=== PATIENT | male | born 1950 | race Caucasian/White ===

== ENCOUNTER → 2018-01-09 | Outpatient (CLI) | payer MEDICARE ==
[2016-03-03 16:38] VITALS: BP 136/74
[~2018-01-09] MED LIST: IBUP-1060 PO; LISI-334 PO; OMEP20TA63 PO; PRAV20TA2 PO
[2018-01-09 14:32] LABS: BASO % 1 % (0-3); EOS # 0.2 x10^3/uL (0.0-0.7); EOS % 4 % (0-3); HEMATOCRIT 43.4 % (39.0-53.0); HEMOGLOBIN 15.1 g/dL (13.0-17.5); LYMPH # 1.4 x10^3/uL (1.0-4.8); LYMPH % 25 % (24-48); MEAN CORPUSCULAR HEMOGLOBIN 33 pg (25-35); MEAN CORPUSCULAR HGB CONC 35 g/dL (31-37); MEAN CORPUSCULAR VOLUME 94 fL (79-100); MONO # 0.5 x10^3/uL (0.0-1.1); MONO % 9 % (0-9); NEUT # 3.4 x10^3uL (1.8-7.7); NEUT % 62 % (31-73); PLATELET COUNT 146 x10^3/uL (140-400); RED BLOOD COUNT 4.61 x10^6/uL (4.30-5.70); RED CELL DISTRIBUTION WIDTH 13.4 % (11.5-14.5); WHITE BLOOD COUNT 5.5 x10^3/uL (4.0-11.0)
--- NOTE | 2018-01-09 14:41 | EKG ---
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
[2018-01-09 15:00] LABS: ALBUMIN 3.7 g/dL (3.4-5.0); ALBUMIN/GLOBULIN RATIO 1.1 (1.0-1.7); CALCIUM 9.1 mg/dL (8.5-10.1); CREATININE 1.2 mg/dL (0.7-1.3); GFR 60.4; POTASSIUM 4.4 mmol/L (3.5-5.1); TOTAL BILIRUBIN 0.5 mg/dL (0.2-1.0); TOTAL PROTEIN 7.2 g/dL (6.4-8.2)
[2018-01-10 01:12] LABS: HEMOGLOBIN A1C 5.9 % (4.8-5.6)
== END | disposition home or self-care (01) ==
LOC: SURGPAT 13:40
PROVIDERS: ATTEND Neurological Surgery
DX: Z01.818 Encounter for other preprocedural examination (principal); M48.062 Spinal stenosis, lumbar region with neurogenic claudication; I10 Essential (primary) hypertension; E78.00 Pure hypercholesterolemia, unspecified; Z87.891 Personal history of nicotine dependence
CPT/HCPCS: 36415; 80053; 83036; 85025; 87641; 93005

== ENCOUNTER → 2018-01-23 | Day surgery (SDC) | payer MEDICARE ==
[~2018-01-23] VITALS: Ht 156.2 cm; Wt 112.0 kg
[~2018-01-23] MED LIST changes: +BACITRACIN 50,000 UNIT in IV NORMAL SALINE 1000ML BAG 1,000 ML IRR ONE; +BUPIVAC MPF-EPI 0.5%-1:200000 30 ML VIAL. INJ ONE; +DESFLURANE > 120 MINUTES IH ONE; +DEXAMETHASONE SOD PHOS 20 MG/5 ML VIAL. ONE; +DOCU-109 PO; +GELATIN SPONGE SIZE 100. ONE; +GLYCOPYRROLATE 1 MG/5 ML VIAL. ONE; +HYDR-2762 PO; +HYDROcodone/APAP 7.5/325MG 1 TAB TABLET PO ONE; +HYDROmorphone 2 MG/ML VIAL IV PRN; +IV RINGERS,LACTATED 1000ML 1,000 ML IV SCH; +KETOROLAC 60 MG/2 ML INJ FOR OR. ONE; +LIDOCAINE 1% PF 2 ML VIAL. ID PRN; +LIDOCAINE 2% PF Vial for OR 5 ML VIAL. ONE; +METH-38 PO; +MIDAZOLAM HCL/PF 2 MG/2 ML VIAL. ONE; +MORPHINE SULFATE 2 MG/ML VIAL. IV PRN; +NEOSTIGMINE METHYLSULFATE 5 MG/5 ML SYRINGE. ONE; +ONDANSETRON PF 4 MG/2 ML VIAL. IV PRN; +ONDANSETRON PF 4 MG/2 ML VIAL. ONE; +PHENYLEPHRINE 10 MG/ML VIAL. ONE; +PROCHLORPERAZINE 10 MG/2 ML VIAL. IV PRN; +PROPOFOL 100 ML IV ONE; +PROPOFOL 20 ML IV ONE; +REMIFENTANIL 2 MG VIAL. IV ONE; +ROCURONIUM 50 MG/5 ML VIAL. ONE; +THROMBIN TOPICAL 20,000 UNIT SPRAY.SYRN KIT TP ONE; +ePHEDrine PF IN SALINE 50 MG/5 ML DISP.SYRIN IV ONE; +fentaNYL PF VIAL 100 MCG/2 ML VIAL IV PRN; +fentaNYL PF VIAL 100 MCG/2 ML VIAL ONE
--- NOTE | 2018-01-23 11:33 | DISCH ---
DISCHARGE INSTRUCTIONS Condition on Discharge Condition on Discharge: Stable Activity After Discharge Activity Instructions for Disc: Activity as tolerated, Avoid exertion Other activity instructions: no driving for a week Bathing Instructions: Shower-keep dressing dry Lifting Instructions after Dis: No heavy lifting, No pulling or pushing, Do not lift >10 pounds Diet after Discharge Additional Diet Restrictions: resume home diet Wound Incision Care Wound/Incision Care: Ice to area for comfort Other wound/incision instructi: may remove dressing in 48 hrs if dry then may shower, no soaking Contacting the after DC Call your doctor for: Concerns you may have Follow-Up Follow up with: Dr. Garcia's nurse in 2 weeks [phone] JAZMINE GARCIA MD Jan 23, 2018 11:33
[2018-01-23 12:53] VITALS: BP 129/73
--- NOTE | 2018-01-26 15:09 | PATHOLOGY ---
[facility] Accession Number: [id number] . 01 Material submitted: . LUMBAR DECOMPRESSION AND DISC . 01 Clinician provided ICD-10: M48.062 . 01 Clinical history: . Lumbar stenosis and neurogenic claudication . 02 Diagnosis: Segments of fibrocartilaginous, adipose, and skeletal muscle tissue and bone, lumbar decompression and disc: - Degenerative changes of fibrocartilaginous tissue. . (JPM:sr. consultant; 01/26/2018) MBR/01/26/2018 . 02 Comment: There is no evidence of an acute inflammatory process or malignancy. . (JPM:sr. consultant; 01/26/2018) . 02 Electronically signed: . Abiodun Elam MD, Pathologist NPI- [id number] . 01 Gross description: . Received in formalin labeled "Bret Mcwilliams, lumbar decompression and disc," are several pieces of glistening, fibrous tissue measuring 4.4 x 3.1 x 1.2 cm in aggregate dimensions, containing small fragments of possible bone. The tissue submitted representatively in cassette A1, following decalcification (TSD; 01/23/2018) TOB/TOB . 02 Pathologist provided ICD-10: M51.36 . 02 CPT . 094492, 405649 Specimen Comment: A courtesy copy of this report has been sent to Specimen Comment: [phone], . Specimen Comment: Report sent to and Specimen Comment: A duplicate report has been generated due to demographic updates. Performed at: [address], [place], [place] [id number] MD Glynn Barrera MD Phone: [phone] Performed at: 02 [facility] [address] [place], [place] [id number] MD Abiodun Elam MD Phone: [phone]
--- NOTE | 2018-01-26 16:25 | HP ---
ADMIT DATE: 01/23/2018 Preoperative History and Physical Onesimo Arnett dictating for Dr. Julián Garcia. DATE OF SURGERY: 01/23/2018 The patient is a 67-year-old who in 2001 underwent surgery for L4-L5 and 6 months later underwent surgery a second time in that location. He did well until about 3 months ago when he developed right-sided lower back pain and right posterior thigh and leg pain. He says he was working in the garden and developed this problem. He relates his pain as a 6/10. Driving or trying to stand or sitting markedly increases his pain. He has been taking ibuprofen and lying down, which has not helped him. There is no pain in the anterior thigh. There is no pain in the left leg. He does not notice weakness or numbness. The principal problem is marked pain, especially when he stands and walks. PAST MEDICAL HISTORY: Chest pain, hypertension. PAST SURGICAL HISTORY: Lumbar microdecompression in 2001, navel hernia in 2006, broken left ulna in 1967. FAMILY HISTORY: Spine problems. 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 . Exercises daily. Smokes 1 pack per day and has for 45 years. Drinks coffee daily. ALLERGIES: No known drug allergies. CURRENT MEDICATIONS: Lisinopril, pravastatin, ibuprofen. REVIEW OF SYSTEMS: A 12-point review of systems was obtained and is noncontributory except for that mentioned above. NEUROSURGERY EXAMINATION: GENERAL APPEARANCE: Alert, pleasant, no acute distress. HEAD: Normocephalic and atraumatic. SKIN: Warm and dry. MUSCULOSKELETAL: Lumbar paraspinal muscle bulk is normal, restricted range of motion of lumbar spine, [id number] tenderness of lower lumbar spine to palpation, normal range of motion of the lower extremities bilaterally. EXTREMITIES: No clubbing, cyanosis or edema. NEUROLOGIC: Alert and oriented times 3, normal recent and remote memory, strength 5/5 in bilateral lower extremities, sensory was intact to light touch in bilateral lower extremities, reflexes were trace and symmetric in lower extremities bilaterally, positive straight leg raising on the right, negative straight leg raising on the left, antalgic gait favoring his right leg. IMAGING: Reviewed. I reviewed a lumbar MRI scan. On that study, at L5-S1, there is broad-based disk bulging and hypertrophic facet, which impinged on the S1 nerve root, primarily in the right side. At L4-L5, there is hypertrophy of the facet, which is associated with significant lateral recess narrowing on the right. At L3-L4, there is a right-sided disk bulging. ASSESSMENT: 1. Other spondylosis with radiculopathy, lumbar region. 2. Other spondylosis with radiculopathy, lumbosacral region. 3. Spinal stenosis, lumbosacral region with neurogenic claudication. PLAN: Based on his symptoms, I feel the problems at L4-L5 and L5-S1 are most likely responsible for his pain. I recommended a 2-level lumbar micro-decompressive operation. I spoke about the surgery and the risks. He understands. He would like to go ahead. We will make those arrangements. JULIÁN GARCIA MD DR: GEORGE/ryan JOB#: [id number] / [id number]
--- NOTE | 2018-01-30 18:07 | OP ---
DATE OF SURGERY: 01/23/2018 PREOPERATIVE DIAGNOSES: Lateral recess stenosis L4-L5 and L5-S1, right, with right lumbar radiculopathy. POSTOPERATIVE DIAGNOSES: Lateral recess stenosis L4-L5, lateral recess stenosis and herniated disc, L5-S1 right with right lumbar radiculopathy. OPERATION PERFORMED: Hemilaminotomy with microdecompression of dura and nerve root L4-L5. Hemilaminotomy and microdiscectomy L5-S1, right. The operation was done with EMG monitoring, fluoroscopy and microscopic dissection. SURGEON: Julián Garcia M.D. OUTSIDE RIGGER: Lauren Tobin APRN OPERATIVE INDICATIONS: The patient is a very pleasant 67-year-old man who developed intractable back and right leg pain which failed conservative measures and had the above-mentioned findings on imaging studies. He failed to improve with conservative measures, and I recommended lumbar microsurgery. He understood the surgery and the risks. He even understood the technique and wished to go ahead. DESCRIPTION OF PROCEDURE: Following general endotracheal anesthesia, the patient was positioned prone on the Vinny frame. His lumbar region was prepped and draped in standard fashion. ZANDER hose and AV impulse boots were applied for DVT prophylaxis. The microscope was draped. Fluoroscopy was draped and brought in the field. Monitoring was established. Ancef 2 grams was given less than 1 hour prior to initiation of surgery. Using fluoroscopic guidance, a midline incision was made from L4 through S1. I dissected down skin and subcutaneous tissue, reflected the paraspinal muscles and placed a Gower microdisk retractor. I directed my attention first to L4-L5. I drilled down and performed a hemilaminotomy with a high speed air drill using the microscope and microscopic technique. I trimmed the thickened ligamentum flavum and peeled this away from the dura. The ligament was scarred at the dura, presumably from the patient's previous 2 lumbar surgeries done in the past. I trimmed away the ligament and worked laterally to the medial edge of the foramen and performed a foraminotomy, both the high speed air drill and the 2.5 and 2 mm Kerrisons. I worked superiorly and trimmed the ligament along the lateral edge of the dura and fully decompressed the region. I gently retracted the root medially. There were a number of epidural veins, which I coagulated and then following this, I explored carefully and felt that I had an excellent decompression. There was very slight disc bulging, but the disc was firm and no discectomy was warranted. I then moved down to L5-S1 in a similar fashion, drilled a hemilaminotomy, trimmed away thickened ligamentum flavum, performed a partial foraminotomy. I gently retracted the root medially at this level, again through the microscope with microscopic technique, and at this level, the disc was bulging, and I incised the ligament annulus. There was subligamentous disc, which I peeled back and removed and then entering the disc space, I performed discectomy with pituitary rongeurs. As I worked, this region became very well decompressed and the disc bulging resolved. I irrigated copiously and then explored and assured myself there were no retained fragments, that the roots were very free. Hemostasis was excellent. I did use a bipolar judiciously and also small amounts of bone wax where necessary for any bone bleeding. I removed the retractor, obtained hemostasis in the muscle. I irrigated copiously, and I closed the wound in layers with absorbable suture, and skin was closed with 4-0 subcuticular stitch. The operation went very well, and the patient was taken to the recovery room in excellent condition. I was quite pleased with the surgery. JULIÁN GARCIA MD DR: GEORGE/ryan JOB#: [id number] / [id number] ELIZABETH
== END | disposition home or self-care (01) ==
LOC: SURG 07:08
PROVIDERS: ATTEND Neurological Surgery
DX: M51.16 Intervertebral disc disorders with radiculopathy, lumbar region (principal); M48.062 Spinal stenosis, lumbar region with neurogenic claudication; M47.27 Other spondylosis with radiculopathy, lumbosacral region; I10 Essential (primary) hypertension; Z98.890 Other specified postprocedural states; F17.210 Nicotine dependence, cigarettes, uncomplicated; Z79.899 Other long term (current) drug therapy
CPT/HCPCS: 63030; 63047; 88304; 88311; 97161; A7015; J0690; J1100; J1885; J2001; J2250; J2405; J2704; J2710; J3010; J3490; J7030; J7120; 76000